=== PATIENT | male | born 1945 | race Caucasian/White ===

== ENCOUNTER 2019-01-26 09:17 | Day surgery (SDC) | payer MEDICARE, BC ==
[2019-01-26] MEDS ORDERED: Midazolam 1 MG/ML 2 ML SDV IV ONE (09:18)
[2019-01-26] MEDS ORDERED: Lactated Ringers 1,000 ML IV ONE (09:18)
[2019-01-26] MEDS ORDERED: Ondansetron 4 MG/2 ML SDV IVPUSH ONE (09:18)
[2019-01-26] MEDS ORDERED: fentaNYL 100 MCG/2 ML SDV IV ONE (09:18)
[2019-01-26] MEDS ORDERED: Dexamethasone 4 MG/ML 5 ML MDV IVPUSH ONE (09:18)
[2019-01-26] MEDS ORDERED: Ketorolac 30 MG/ML SDV IVPUSH ONE ×2 (09:18→13:42)
[2019-01-26] MEDS ORDERED: Lidocaine 2% 100 MG/5 ML Syringe IVPUSH ONE (09:18)
[2019-01-26] MEDS ORDERED: Propofol 200 MG/20 ML SDV IV ONE (09:18)
[2019-01-26] MEDS ORDERED: HYDROmorphone 2 MG/ML SDV IV ONE (09:18)
[2019-01-26] MEDS ORDERED: Sodium Chloride 0.9% 10 ML Syringe FLUSH PRN (09:30)
[2019-01-26] MEDS ORDERED: Lactated Ringers 1,000 ML IV SCH (09:30)
[2019-01-26] MEDS: ceFAZolin 2 GM in Premix Bag 1 BAG IV ONE ×2 (10:36→11:28)
[2019-01-26] MEDS ORDERED: Bupivacaine 0.5% 30 ML SDV ONE (12:02)
--- NOTE | 2019-01-26 12:56 | PCM.OPNOTE ---
- General Post-Op/Procedure Note Date of Surgery/Procedure: 01/26/19 Operative Procedure(s): orif right 3rd metacarpal shaft. application of short arm splint Pre Op Diagnosis: third right metacarpal shaft fracture, closed Post-Op Diagnosis: Same Anesthesia Technique: General LMA Primary Surgeon: Dilip Howard Anesthesia Provider: Bg LEWIS in mLs: 10 Condition: Good
--- NOTE | 2019-01-26 16:17 | OR ---
DATE OF OPERATION: 01/26/2019 SURGEON: Dilip Howard DO PREOPERATIVE DIAGNOSIS: Right 3rd metacarpal shaft fracture, closed. POSTOPERATIVE DIAGNOSIS: Right 3rd metacarpal shaft fracture, closed. PROCEDURES: 1. Open reduction and internal fixation, right 3rd metacarpal shaft. 2. Application of short arm splint. ANESTHESIOLOGIST: Bg Frank CRNA. ANESTHESIA: Laryngeal mask airway. FLUIDS: Lactated Ringer's solution. ESTIMATED BLOOD LOSS: Less than 10 mL. COMPLICATIONS: None. SPECIMEN: None. DISCHARGE DISPOSITION: Stable to PACU. INSTRUMENTATION: Blaine modular handset. HISTORY AND INDICATIONS FOR THE PROCEDURE: The patient was seen preoperatively yesterday in [place]. He had a syncopal episode around January 17 and was seen in the Emergency Department. He was found to have the above-mentioned fracture on radiographs. He was placed into a splint and asked to follow up. I saw him yesterday. Risks and benefits of the procedure were explained to the patient. Informed consent was obtained. DETAILS OF PROCEDURE: The patient was seen preoperatively by myself and the Anesthesia staff in the preoperative holding area where the operative site was marked. He was brought to the operative suite by Anesthesia staff, where general anesthesia was administered. A well-padded tourniquet was placed on his right arm. His old splint was removed. We did a pre scrub with PCMX solution. The right upper extremity was then prepped and draped in sterile manner. Time- out was called after the correct patient, correct procedure, the correct site, and the antibiotics had been within appropriate period of time. The right upper extremity was exsanguinated. Tourniquet was raised to 250 mmHg during the procedure and let down during closure. An incision was made over the 3rd metacarpal shaft. I then went radial to the extensor tendon and then retracted it ulnarly with small Weitlaner retractors. I then used my 15 blade to debride some of the callus and soft tissue and irrigated as well as using some rongeurs to remove some of the callus off the soft tissue. I then used bone tenaculums. This was difficult because it was a long oblique fracture with the distal ulnar side of the portion going almost up to the metacarpal head. I got a hold of each fragment, then pulled it apart and then washed it out and then approximated them back together and they keyed in very nicely, and then holding this into position, I drilled two lag screws across this, one in a radial to ulnar and one in an ulnar to radial direction from medial to lateral. I then took films to ensure that our reduction was good and then I placed a segmented H plate and bent this appropriately over the bone and then filled about 3/4 of those holes with locking screws. I then took my final films, which showed good reduction and good location of our plate screw construct. We then copiously irrigated with saline and then closed subcutaneously with 2-0 Vicryl, followed by 3-0 nylon horizontal skin mattresses. We then placed a Betadine- soaked Adaptic, some fluffs, Webril, and then placed him into an ulnar gutter splint. The patient was then allowed to awaken from general anesthesia, taken to the PACU in stable condition. /[id number] CECIL/LUIS
--- NOTE | 2019-01-27 09:10 | CR ---
INDICATION: Intraoperative evaluation for ORIF. C-ARM FLUOROSCOPY IN OR, UP TO 1 HOUR: Minimal fluoroscopy time of 0.4 minutes is noted with the C-arm intraoperatively. A single lateral view of the hand was obtained, showing a plate with multiple screws and additional screws in the area of the metacarpals. No previous study was available. MTDD
== END 2019-01-26 15:07 | disposition home or self-care (01) ==
LOC: FB.SDS 09:17
PROVIDERS: ATTEND Orthopaedic Surgery
DX: S62.322A Displaced fracture of shaft of third metacarpal bone, right hand, initial encounter for closed fracture (principal); I65.21 Occlusion and stenosis of right carotid artery; E11.9 Type 2 diabetes mellitus without complications; E78.00 Pure hypercholesterolemia, unspecified; K21.9 Gastro-esophageal reflux disease without esophagitis; M50.30 Other cervical disc degeneration, unspecified cervical region; W19.XXXA Unspecified fall, initial encounter; Z88.2 Allergy status to sulfonamides; Z79.82 Long term (current) use of aspirin; Z79.4 Long term (current) use of insulin; Z79.899 Other long term (current) drug therapy
CPT/HCPCS: 01830-QZ; 76000; 82962; J0690; J1100; J1170; J1885; J2001; J2250; J2405; J2704; J3010; J3490; J7120